=== PATIENT | female | born 1995 | race Caucasian/White ===

== ENCOUNTER 2017-09-16 21:47 | Emergency (ER) | payer MEDICAID ==
[2017-09-16] MEDS ORDERED: Sodium Chloride 0.9% 1,000 ML IV ONE (22:57)
[2017-09-16] MEDS ORDERED: Sodium Chloride 0.9% 1,000 ML ONE (23:09)
[2017-09-16 23:22] LABS: BASO % 0.4 % (0.0-2.0); EOS # 0.2 K/uL (0.0-0.7); HEMOGLOBIN 10.8 g/dL (11.0-16.0); LYMPH # 2.9 K/uL (1.0-4.3); LYMPH % 29.6 % (20.0-40.0); MEAN CELL VOLUME 79.6 fL (81.0-99.0); MEAN CORPUSCULAR HGB CONC 33.9 g/dL (33.0-37.0); MEAN PLATELET VOLUME 8.9 fL (7.2-11.7); MONO # 0.6 K/uL (0.0-0.8); MONO % 5.7 % (0.0-10.0); NEUT # 6.2 K/uL (1.8-7.0); NEUT % 62.3 % (50.0-75.0); RBC 4.01 Mil/uL (3.80-5.20); RED CELL DISTRIBUTION WIDTH 15.8 % (11.5-14.5); WHITE BLOOD COUNT 9.9 K/uL (4.8-10.8)
[2017-09-16 23:28] LABS: INR 1.1; PROTHROMBIN TIME 11.8 SECONDS (9.7-12.2)
[2017-09-16 23:33] LABS: ALBUMIN 3.5 g/dL (3.5-5.0); ALT/SGPT 33 U/L (9-52); AST/SGOT 54 U/L (14-36); BLOOD UREA NITROGEN 6 mg/dL (7-17); CALCIUM 8.6 mg/dl (8.6-10.4); GFR AFRICAN-AMERICAN > 60; GFR NON-AFRICAN AMERICAN > 60
--- NOTE | 2017-09-17 00:04 | C.PDOC ---
History Of Present Illness 21 years old female, currently 21 weeks , presents to ED with complaints of mild dizziness and dehydration associated with nausea. Patient also states an associated symptom of nose bleed that began yesterday and last week. Patient states nose bleeds last about 2-3 minute. Denies vomiting, fever or any other physical complaints. Patient reports she had an OB follow up for . Chief Complaint (Nursing): Dizziness/Lightheaded History Per: Patient History/Exam Limitations: no limitations Onset/Duration Of Symptoms: Hrs Current Symptoms Are (Timing): Still Present Associated Symptoms Preceding Syncopal Episode: No Predromal Symptoms (Sudden Onset) Seizure Or Post-ictal Symptoms: None Fall Associated With With Symptoms: No Recent travel outside of the [place]: No - Symptoms Of CVA Associated Symptoms: denies: Impaired Speech, Seizure Activity, New Vision Deficit(Left), New Vision Deficit(Right), Decreased Ability To Walk, New Confusion Recent Head Trauma: No Past Medical History Reviewed: Historical Data, Nursing Documentation, Vital Signs Vital Signs: Last Vital Signs Temp 98.3 F 09/17/17 00:33 Pulse 99 H 09/17/17 00:33 Resp 18 09/17/17 00:33 BP 102/62 09/17/17 00:33 Pulse Ox 95 09/17/17 00:33 - Medical History PMH: No Chronic Diseases Surgical History: No Surg Hx Family History: States: No Known Family Hx - Social History Hx Alcohol Use: No Hx Substance Use: No - Immunization History Hx Tetanus Toxoid Vaccination: No Hx Influenza Vaccination: No Hx Pneumococcal Vaccination: No Review Of Systems Constitutional: Positive for: Other (Dehydration ). Negative for: Fever, Chills Respiratory: Negative for: Shortness of Breath Gastrointestinal: Positive for: Nausea. Negative for: Vomiting, Diarrhea Skin: Negative for: Rash Neurological: Positive for: Dizziness (Mild ). Negative for: Weakness, Numbness Physical Exam - Physical Exam Appears: Well, Non-toxic, No Acute Distress Skin: Normal Color, Warm, Dry Head: Atraumatic, Normacephalic Eye(s): bilateral: Normal Inspection Oral Mucosa: Moist Neck: Supple Chest: Symmetrical, No Tenderness Cardiovascular: Rhythm Regular Respiratory: Normal Breath Sounds, No Decreased Breath Sounds, No Rales, No Rhonchi, No Wheezing Gastrointestinal/Abdominal: Soft, No Tenderness Extremity: Normal ROM, No Deformity Extremity: Bilateral: Normal Color And Temperature, Normal ROM Neurological/Psych: Oriented x3, Normal Speech, Normal Cognition ED Course And Treatment - Laboratory Results Result Diagrams: 09/16/17 23:17 09/16/17 23:17 O2 Sat by Pulse Oximetry: 98 (RA) Pulse Ox Interpretation: Normal Medical Decision Making Medical Decision Making: Administered IV fluids and Zofran. Ordered blood work and urinalysis. Disposition - [facility] - Disposition: HOME/ ROUTINE Disposition Time: 23:35 Condition: IMPROVED Additional Instructions: Thank you for letting us take care of you today. The emergency medical care you received today was directed at your acute symptoms. If you were prescribed any medication, please fill it and take as directed. It may take several days for your symptoms to resolve. Return to the Emergency Department if your symptoms worsen, do not improve, or if you have any other problems. Please contact your doctor or call one of the physicians/clinics you have been referred to that are listed on the Patient Visit Information form that is included in your discharge packet. Bring any paperwork you were given at discharge with you along with any medications you are taking to your follow up visit. Our treatment cannot replace ongoing medical care by a primary care provider (PCP) outside of the emergency department. Thank you for allowing the [facility] team to be part of your care today. Try to stay hydrated throughout the day. 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 Prescriptions: Ondansetron ODT [Zofran ODT] 4 mg PO Q8 PRN #20 odt PRN Reason: Nausea/Vomiting Instructions: Nutrition Before and During , Nausea and Vomiting of (DC) Forms: [employer] (Latvian) - Clinical Impression Clinical Impression: Dizziness, - Scribe Statement The provider has reviewed the documentation as recorded by the Felicianoibkonstantin Jacobsen All medical record entries made by the Felicianoibe were at my direction and personally dictated by me. I have reviewed the chart and agree that the record accurately reflects my personal performance of the history, physical exam, medical decision making, and the department course for this patient. I have also personally directed, reviewed, and agree with the discharge instructions and disposition.
[2017-09-17 00:34] VITALS: BP 102/62; PULSE 99; RESP 18; TEMP 98.3
[2017-09-17 00:43] VITALS: O2SAT 98
== END 2017-09-17 00:34 | disposition home or self-care (01) ==
LOC: C.ER 21:47
DX: O26.892 Other specified pregnancy related conditions, second trimester (principal); R42 Dizziness and giddiness; Z3A.21 21 weeks gestation of pregnancy
CPT/HCPCS: 80053; 85025; 85610; 85730; 96361; 96374; 99285; J2405; J7040

== ENCOUNTER 2017-09-27 16:57 | Emergency (ER) | payer MEDICAID ==
[2017-09-27 17:06] VITALS: BP 109/68; PULSE 100; TEMP 97.9; O2SAT 99
[2017-09-27] MEDS ORDERED: Bacitracin 500 Units/gm Oint Foilpak UD TOP ONE (17:40)
[2017-09-27] MEDS ORDERED: Tdap Vaccine 0.5 ml Vial (10-64 yrs) IM ONE (17:41)
--- NOTE | 2017-09-27 17:43 | C.PDOC ---
History Of Present Illness 21 y/o female presents to the ED for evaluation after being bit by a mouse. Now complaining of pain to the bite wound. Injury occurred last night at her right thumb. Last tetanus is unknown. Time Seen by Provider: 09/27/17 17:28 Chief Complaint (Nursing): Bite History Per: Patient History/Exam Limitations: no limitations Onset/Duration Of Symptoms: Days Current Symptoms Are (Timing): Still Present Past Medical History Reviewed: Historical Data, Nursing Documentation, Vital Signs Vital Signs: Last Vital Signs Temp 97.9 F 09/27/17 17:02 Pulse 100 H 09/27/17 17:02 Resp 18 09/27/17 17:55 BP 109/68 09/27/17 17:02 Pulse Ox 99 09/27/17 17:45 - Medical History PMH: No Chronic Diseases Surgical History: No Surg Hx Family History: States: Unknown Family Hx - Social History Hx Tobacco Use: No Hx Alcohol Use: No Hx Substance Use: No - Immunization History Hx Tetanus Toxoid Vaccination: No Hx Influenza Vaccination: No Hx Pneumococcal Vaccination: No Review Of Systems Except As Marked, All Systems Reviewed And Found Negative. Constitutional: Positive for: Other (Mouse bite) Physical Exam - Physical Exam Appears: Non-toxic, No Acute Distress Skin: Warm, Dry Extremity: Normal ROM, Other (Faint erythema and small miniscule abrasions to left dorsal MCP of thumb; No gross swelling, erythema, or infectious process. Neurovascularly intact) Pulses: Left Radial: Normal, Right Radial: Normal Neurological/Psych: Oriented x3 ED Course And Treatment O2 Sat by Pulse Oximetry: 99 (RA) Pulse Ox Interpretation: Normal Medical Decision Making Medical Decision Making: Impression: Mouse bite Plan: * Tetanus booster given * Bacitracin applied to wound * Tylenol PO for pain control Patient will be discharged home with rx for Augmentin. Advised patient to take antibiotics only if redness/swelling worsens. Suspicion for rabies secondary to mouse bite is low therefore rabies vaccine not given. Disposition Counseled Patient/Family Regarding: Diagnosis, Need For Followup, Rx Given - Disposition Referrals: Keyla Miguel MD [Staff Provider] - Disposition: HOME/ ROUTINE Disposition Time: 17:43 Condition: STABLE Additional Instructions: follow up with your doctor in 2 days call to make an appointment continue your home medications return to ER if symptoms worsens or progress start antibiotic only if wound becomes red or inflammed Prescriptions: Amoxicillin/Clavulanate [Augmentin 875 MG-125 MG] 1 tab PO BID #14 tab Instructions: Animal Bites (DC) Forms: [facility] (Vietnamese), General Discharge Instructions - Clinical Impression Clinical Impression: Animal bite wound - Scribe Statement The provider has reviewed the documentation as recorded by the Scribe (Martha Monroy) Provider Attestation: All medical record entries made by the Scribe were at my direction and personally dictated by me. I have reviewed the chart and agree that the record accurately reflects my personal performance of the history, physical exam, medical decision making, and the department course for this patient. I have also personally directed, reviewed, and agree with the discharge instructions and disposition.
[2017-09-27] MEDS ORDERED: Bacitracin 500 Units/gm Oint Foilpak UD ONE (17:48)
[2017-09-27] MEDS ORDERED: Tetanus/Diphtheria Toxoids 0.5 ml Syringe IM ONE (17:48)
[2017-09-27 17:58] VITALS: RESP 18
== END 2017-09-27 17:58 | disposition home or self-care (01) ==
LOC: C.ER 16:57
DX: S61.051A Open bite of right thumb without damage to nail, initial encounter (principal); W53.01XA Bitten by mouse, initial encounter; Z23 Encounter for immunization

== ENCOUNTER 2017-11-17 04:05 | Emergency (ER) | payer MEDICAID ==
[2017-11-17] MEDS ORDERED: Sodium Chloride 0.9% 1,000 ML ONE (04:34)
[2017-11-17] MEDS ORDERED: Sodium Chloride 0.9% 1,000 ML IV ONE (04:36)
[2017-11-17 04:53] LABS: EOS # 0.1 K/uL (0.0-0.7); EOS % 1.5 % (0.0-4.0); HEMOGLOBIN 11.1 g/dL (11.0-16.0); LYMPH # 2.7 K/uL (1.0-4.3); MEAN CORPUSCULAR HEMOGLOBIN 27.5 pg (27.0-31.0); MEAN CORPUSCULAR HGB CONC 34.3 g/dL (33.0-37.0); MEAN PLATELET VOLUME 9.8 fL (7.2-11.7); MONO # 0.7 K/uL (0.0-0.8); MONO % 7.8 % (0.0-10.0); NEUT # 5.2 K/uL (1.8-7.0); NEUT % 59.7 % (50.0-75.0); NRBC % 0.2 % (0.0-2.0); RBC 4.04 Mil/uL (3.80-5.20); RED CELL DISTRIBUTION WIDTH 15.5 % (11.5-14.5); WHITE BLOOD COUNT 8.8 K/uL (4.8-10.8)
[2017-11-17 04:58] LABS: ALB/GLOB RATIO 1.1 (1.0-2.1); ALBUMIN 3.5 g/dL (3.5-5.0); ALT/SGPT 55 U/L (9-52); AST/SGOT 70 U/L (14-36); BLOOD UREA NITROGEN 5 mg/dL (7-17); GFR AFRICAN-AMERICAN > 60; GFR NON-AFRICAN AMERICAN > 60
--- NOTE | 2017-11-17 05:17 | C.PDOC ---
History Of Present Illness 21 year old female who is 31 weeks , P:0, presents to the ER with a complaint of weakness and malaise intermittently for the past few days. Patient reports she feels dehydrated, she has been fully fasting and has not been drinking enough fluids. Denies SOB, palpitations, headache, or abdominal pain. Time Seen by Provider: 11/17/17 04:34 Chief Complaint (Nursing): Dizziness/Lightheaded History Per: Patient History/Exam Limitations: no limitations Onset/Duration Of Symptoms: Days, Intermittent Episodes Current Symptoms Are (Timing): Still Present Seizure Or Post-ictal Symptoms: None Fall Associated With With Symptoms: No Recent travel outside of the [place]: No Past Medical History Reviewed: Historical Data, Nursing Documentation, Vital Signs Vital Signs: Last Vital Signs Temp 98.6 F 11/17/17 04:23 Pulse 115 H 11/17/17 04:23 Resp 19 11/17/17 04:23 BP 123/68 11/17/17 04:23 Pulse Ox 98 11/17/17 05:21 Family History: States: Unknown Family Hx - Social History Hx Tobacco Use: No Hx Alcohol Use: No Hx Substance Use: No - Immunization History Hx Tetanus Toxoid Vaccination: No Hx Influenza Vaccination: No Hx Pneumococcal Vaccination: No Review Of Systems Constitutional: Positive for: Weakness, Malaise. Negative for: Fever, Chills Cardiovascular: Negative for: Chest Pain, Palpitations Respiratory: Negative for: Cough, Shortness of Breath Gastrointestinal: Negative for: Nausea, Vomiting Physical Exam - Physical Exam Appears: Well, Non-toxic, No Acute Distress Skin: Normal Color, Warm, Dry Head: Atraumatic, Normacephalic Eye(s): bilateral: Normal Inspection Oral Mucosa: Moist Neck: Normal, Supple Chest: Symmetrical, No Tenderness Cardiovascular: Rhythm Regular Respiratory: Normal Breath Sounds, No Rales, No Rhonchi, No Wheezing Gastrointestinal/Abdominal: Soft, No Tenderness Neurological/Psych: Oriented x3, Normal Speech ED Course And Treatment - Laboratory Results Result Diagrams: 11/17/17 04:42 11/17/17 04:42 O2 Sat by Pulse Oximetry: 98 (Room air) Pulse Ox Interpretation: Normal Progress Note: Blood work ordered, results were negative. IV fluids administered. On reevaluation, patient reports improvement of symptoms, she is resting comfortably in the ER in no acute distress, vitals are stable, will discharge home with Rx and instructions to follow up with PMD or return if symptoms worsen. Disposition - Disposition Referrals: OB, PMD [Other] Disposition: LEFT W/O BEING SEEN - ER ONLY Disposition Time: 05:31 Condition: GOOD Additional Instructions: Please take fluids today Return to ER if worse Forms: [facility] (Slovenian) - Clinical Impression Clinical Impression: Malaise, Dehydration, mild - PA / MULTIPLE DRILL OPERATOR / Resident Statement MD/DO has reviewed & agrees with the documentation as recorded. - Scribe Statement The provider has reviewed the documentation as recorded by the Scribe John Godwin All medical record entries made by the [place] were at my direction and personally dictated by me. I have reviewed the chart and agree that the record accurately reflects my personal performance of the history, physical exam, medical decision making, and the department course for this patient. I have also personally directed, reviewed, and agree with the discharge instructions and disposition.
[2017-11-17 05:35] VITALS: BP 113/67; PULSE 88; RESP 18; TEMP 98; O2SAT 99
== END 2017-11-17 05:47 | disposition home or self-care (01) ==
LOC: C.ER 04:05
DX: O26.893 Other specified pregnancy related conditions, third trimester (principal); R53.81 Other malaise; E86.0 Dehydration; Z3A.31 31 weeks gestation of pregnancy
CPT/HCPCS: 80053; 82948; 85025; 96360; 99285; J7030

== ENCOUNTER 2017-12-03 00:30 | Emergency (ER) | payer MEDICAID ==
[2017-12-03 00:49] VITALS: BMI 26.4
[2017-12-03 01:17] LABS: SQUAMOUS EPITHIAL 3 /hpf (0-5); URINE BACTERIA FEW (<OCC); URINE BILIRUBIN NEGATIVE (NEGATIVE); URINE BLOOD NEGATIVE (NEGATIVE); URINE CLARITY Clear (Clear); URINE COLOR Straw (YELLOW); URINE GLUCOSE (UA) NORMAL (Normal); URINE LEUKOCYTE ESTERASE 3+ Leu/uL (Negative); URINE PROTEIN NEGATIVE (NEGATIVE); URINE UROBILINOGEN NORMAL mg/dL (0.2-1.0)
--- NOTE | 2017-12-03 02:22 | OBHP ---
Datetime: 12/03/2017 01:59 IP Adm Impression: , intrauterine ; No Active Labor; Intact Membranes IP Chief Complaint Other: Pelvic pain and some N_V IP Admit Plan: Observation/Evaluation Admit Comment, IP Provider: 21 yo female G1 and with c/o of N_V earlier today but better now and now some low abdominal pain. Denies urinary complaints but drinks no water Admits to adequate FM and denies leaking of fluid or vaginal bleeding FH tracing reassuring UA with + LE's and >10 WBC's and suspicious for UTI and Rx given for Macrobid 100 mg po BID x 7 da ys and will increase po water intake. Advised to keep PNC appointments and continue PNV Pelvic Type - PN: Adequate Extremities - PN: Normal Abdomen - PN: Normal Back - PN: Normal Breast - PN: Not Done Lungs - PN: Normal Heart - PN: Normal Thyroid - PN: Normal Neurologic - PN: Normal HEENT - PN: Normal General - PN: Normal FHR - Baseline A Provider: 150-160 Membranes, Provider: Intact Contraction Comments Provider: None Gestation - Est Wks by US: 34.0 Vital Signs Provider: Reviewed; Within Normal Limits NICHD Variability Prov Fetus A: Moderate 6-25bpm NICHD Accel Fetus A IP Provider: 10X10 FHR Category Provider Fetus A: Category I NICHD Decel Fetus A IP Provider: None Dilatation, Provider: N/A Genitourinary Exam: Normal DTRs - PN: Normal
[2017-12-03 06:37] VITALS: BP 110/61; PULSE 89; RESP 18; TEMP 98.7
[2017-12-03] MEDS ORDERED: Prenatal Multivit/Folic Acid/Iron Tab PO SCH (10:00)
== END 2017-12-03 02:20 | disposition home or self-care (01) ==
LOC: C.EROB 00:30
DX: O26.893 Other specified pregnancy related conditions, third trimester (principal); Z3A.34 34 weeks gestation of pregnancy; R10.30 Lower abdominal pain, unspecified

== ENCOUNTER 2018-01-11 04:25 | Inpatient (IN) | payer MEDICAID ==
[2018-01-11 05:30] VITALS: BMI 26.6
[2018-01-11] MEDS ORDERED: Lactated Ringer's 1,000 ML IV ONE ×2 (06:04→08:14)
[2018-01-11] MEDS ORDERED: Lactated Ringer's 1,000 ML IV SCH (06:15)
[2018-01-11 07:00] LABS: BASO % 0.1 % (0.0-2.0); EOS # 0.1 K/uL (0.0-0.7); EOS % 0.8 % (0.0-4.0); HEMOGLOBIN 12.2 g/dL (11.0-16.0); LYMPH # 3.4 K/uL (1.0-4.3); LYMPH % 25.3 % (20.0-40.0); MEAN CELL VOLUME 79.3 fL (81.0-99.0); MEAN CORPUSCULAR HEMOGLOBIN 26.5 pg (27.0-31.0); MEAN CORPUSCULAR HGB CONC 33.5 g/dL (33.0-37.0); MEAN PLATELET VOLUME 10.2 fL (7.2-11.7); MONO % 7.3 % (0.0-10.0); NEUT # 8.9 K/uL (1.8-7.0); NEUT % 66.5 % (50.0-75.0); RBC 4.58 Mil/uL (3.80-5.20); RED CELL DISTRIBUTION WIDTH 16.6 % (11.5-14.5); WHITE BLOOD COUNT 13.4 K/uL (4.8-10.8)
--- NOTE | 2018-01-11 07:02 | OBHP ---
Datetime: 01/11/2018 06:43 IP Adm Impression: Term, intrauterine ; Active labor IP Admit Plan: Admit to unit; Initiate labor protocol Admit Comment, IP Provider: 22 y.o. , LMP 04/21/17, revised ARABELLA 01/15/18, EGA 39w 3d c/o Ctx sin ce 2300 hours 01/10/18; pain scale 7/10, approximately every 5 minutes. Decreased movement since late last evening. Denies LOF, VB. care: [facility]. Noted for abnormal scree kapil - S/P amniocentesis - negative. Also, mildly elevated LFTs: S/P consultation with MFM, nothing t o do in . 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 No significant follow up recently PSH: denies NKDA Meds: PNV Soc Hx: denies tobacco, illicit drug or EtOH use. - less than 1 year; in [place]. Unemmployed. Lives with her parents Fam Hx; Mother alive 47. Father alive 50 - nomed issues. Assessment: 22 y.o. P0, 39w 3d, early labor. GBS (-). Category 1 tracing. Cliniclly stable. Plan: 1) Admit 2) NPO 3) Admission labs 4) Continuous EFM 5) Anesthesia consult 6) Anticipate vaginal delivery Pelvic Type - PN: Adequate Extremities - PN: Normal Abdomen - PN: Normal Back - PN: Normal Lungs - PN: Normal Heart - PN: Normal Thyroid - PN: Not Done Neurologic - PN: Normal HEENT - PN: Normal General - PN: Normal Presentation-Admit: Vertex FHR - Baseline A Provider: 150 Membranes, Provider: Intact Contraction Comments Provider: 3-5 Comments, ACOG Physical Exam: Abdomen: Gravid. Firm with contractions. All other systems reviewed and are negative Gestation - Est Wks by US: 39 w 3d IP Hx Assessment: The History has been Reviewed and is Current IP Chief Complaint: Uterine contractions NICHD Variability Prov Fetus A: Moderate 6-25bpm NICHD Accel Fetus A IP Provider: 10X10 FHR Category Provider Fetus A: Category I NICHD Decel Fetus A IP Provider: Variable Dilatation, Provider: 5 Effacement, Provider: 50 Station, Provider: -2 Genitourinary Exam: Normal DTRs - PN: Not Done
[2018-01-11 07:03] LABS: SQUAMOUS EPITHIAL 1 /hpf (0-5); URINE BACTERIA RARE (<OCC); URINE BILIRUBIN NEGATIVE (NEGATIVE); URINE BLOOD NEGATIVE (NEGATIVE); URINE CLARITY Clear (Clear); URINE COLOR Yellow (YELLOW); URINE GLUCOSE (UA) NORMAL (Normal); URINE LEUKOCYTE ESTERASE TRACE Leu/uL (Negative); URINE PROTEIN NEGATIVE (NEGATIVE); URINE UROBILINOGEN NORMAL mg/dL (0.2-1.0)
[2018-01-11 07:13] LABS: ALB/GLOB RATIO 1.1 (1.0-2.1); ALBUMIN 3.6 g/dL (3.5-5.0); ALT/SGPT 54 U/L (9-52); AST/SGOT 61 U/L (14-36); BLOOD UREA NITROGEN 8 mg/dL (7-17); CALCIUM 9.4 mg/dl (8.6-10.4); GFR AFRICAN-AMERICAN > 60; GFR NON-AFRICAN AMERICAN > 60
[2018-01-11] MEDS ORDERED: Sodium Citrate/Citric Acid 15 ml Sol PO ONE (08:14)
[2018-01-11] MEDS ORDERED: cefOXitin IV 2 gm in Dextrose 2 GM/50 ML BAG IVPB ONE (08:14)
[2018-01-11] MEDS ORDERED: Dextrose 5%/0.9% NS 1,000 ML IV ONE (08:15)
[2018-01-11] MEDS ORDERED: cefOXitin IV 2 gm in Saline 2 GM/50 ML BAG IVPB ONE (08:19)
--- NOTE | 2018-01-11 08:19 | OBPN ---
Datetime: 01/11/2018 08:16 IP Progress Impression: Non-reassuring heart rate IP Procedures: Artificial ROM; Sterile Vag Exam Contraction Comments Provider: irrg FHR - Baseline A Provider: 130 IP Progress Note Comment: pt was examined at bed side. fhr 130 min brad 5/80/-2 arom thick meconium pln primary c/s r/a/b disc pt understan and agrees NICHD Variability Prov Fetus A: Minimal - Undetectable to <5bpm Dilatation, Provider: 5 Effacement, Provider: 70 Station, Provider: -3 NICHD Decel Fetus A IP Provider: Variable Datetime: 01/11/2018 06:43 Membranes, Provider: Intact Gestation - Est Wks by US: 39 w 3d Presentation-Admit: Vertex NICHD Accel Fetus A IP Provider: 10X10 FHR Category Provider Fetus A: Category I Datetime: 12/03/2017 01:59 Vital Signs Provider: Reviewed; Within Normal Limits
[2018-01-11] MEDS ORDERED: Oxytocin 20 units in LR 2,000 ML IV ONE (08:20)
[2018-01-11] MEDS ORDERED: Phenylephrine 10 mg/ml Inj ONE (08:21)
[2018-01-11] MEDS ORDERED: ePHEDrine 50 mg/ml Inj ONE (08:21)
[2018-01-11] MEDS ORDERED: Oxycodone/Acetaminophen 5/325 mg Tab PO PRN (08:39)
[2018-01-11] MEDS ORDERED: Oxytocin 10 Units/ml Inj ONE (09:38)
[2018-01-11] MEDS ORDERED: Dexamethasone 4 mg/1 ml IVP PRN (10:05)
[2018-01-11] MEDS ORDERED: Morphine 4 MG/ML VIAL IVP PRN (10:55)
[2018-01-11] MEDS: Simethicone 80 mg Chewtab PO SCH ×3 (18:16→22:58)
[2018-01-11] MEDS: Prenatal Multivit/Folic Acid/Iron Tab PO SCH (18:22)
--- NOTE | 2018-01-11 21:38 | OBDS ---
DELIVERY PERSONNEL Delivery Doctor: Ramon Graf MD Scrub Nurse: Luzmaria Lozano OBT Center Line Cutter Operator: Kesha Henderson RN Anesthesiologist: Azul Sandoval MD Resident: Jennifer Wesley MATERNAL INFORMATION Delivery Anesthesia: Spinal Medications in Delivery: 20mu in 1000 LR with 10units of pit added by Estimated Blood Loss (ml): 800 Placenta Cultured: Yes Maternal Complications: None RN Comments: thick meconium Provider Comments: banby deliverd in [place]. cord around neck. thick meconiu,. peads presem 6/9 cord gas send no com LABOR SUMMARY EDC: 01/15/2018 00:00 No. Babies in Womb: 1 Attempted: No Labor Anesthesia: None LABOR INFORMATION Reason for Induction: Not Applicable Onset of Labor: 01/11/2018 05:00 Cervical Ripening Agents: Sky Balloon Oxytocin: N/A Group B Beta Strep: Negative (Annotations: 12/13/2017) Antibiotics # of Doses: 0 Antibiotics Time of Last Dose: 0 Steroids Given: None Reason Steroids Not Administered: Imminent Delivery MEMBRANES Membranes Rupture Method: Artificial Rupture of Membranes: 01/11/2018 08:22 Length of Rupture (hrs): 1.18 Amniotic Fluid Color: Particulate Meconium Amniotic Fluid Amount: None (Annotations: mom may have been ruptured) Amniotic Fluid Odor: None STAGES OF LABOR Stage 3 hrs: 0 Stage 3 min: 2 Total Time in Labor hrs: 4 Total Time in Labor min: 35 CSECTION DELIVERY Primary Indication: Nonreassuring Status CSection Urgency: Non Elective CSection Incidence: Primary Labor: Labor Elective: Nonelective CSection Incision: Lower Uterine Transverse Sterilization Procedure: [place] BABY A INFORMATION Delivery Date/Time: 01/11/2018 09:33 Method of Delivery: Born in Route : No : N/A Forceps: N/A Vacuum Extraction: N/A Shoulder Dystocia : No SHOULDER DYSTOCIA BABY A Infant Delivery Date/Time: 01/11/2018 09:33 PRESENTATION/POSITION BABY A Presentation: Cephalic Cephalic Presentation: Vertex Vertex Position: Left Occipital Anterior Breech Presentation: N/A PLACENTA INFORMATION BABY A Placenta Delivery Time : 01/11/2018 09:35 Placenta Method of Delivery: Manual Removal Placenta Status: Delivered SCORES BABY A Heart Rate 1 min: Slow, Below 100 bpm Resp Effort 1 min: Slow, Irregular Reflex Irritability 1 min: Cough or Sneeze or Pulls Away Muscle Tone 1 min: Some Flexion of Extremities Color 1 min: Body [place], Extremities Blue Resuscitation Effort 1 min: N/A SCORE 1 MIN: 6 Heart Rate 5 min: >100 bpm Resp Effort 5 min: Good Cry Reflex Irritability 5 min: Cough or Sneeze or Pulls Away Muscle Tone 5 min: Active Motion Color 5 min: Body [place], Extremities Blue Resuscitation Effort 5 min: N/A SCORE 5 MIN: 9 INFANT INFORMATION BABY A Gestational Age at Delivery: 39.3 Gestational Status: Term Infant Outcome : Liveborn Condition : Stable Sex: Female IDENTIFICATION/MEDS BABY A ID Band Number: [id number] Sensor Number: [id number] Sensor Location : Cord Clamp Vitamin K Given : Not Given Erythromycin Given: Not Given WEIGHT/LENGTH BABY A Infant Birthweight (gms): 2340 Infant Weight (lb): 5 Infant Weight (oz): 3 Infant Length Inches: 18.50 Length cms: 47.0 CORD INFORMATION BABY A No. Cord Vessels: 3 Nuchal Cord : Around Neck x1, Loose Nuchal Cord Other: around body Cord Blood Taken: Yes Suction: Mouth; Nose; Pharynx ASSESSMENT BABY A Complications: Decreased Variability; Meconium Physical Findings at Delivery: Within Normal Limits Respirations: Grunting Infant Care By: Dr. Wlesh and Jaleel Jett Transferred To: [facility] BABY B INFORMATION Method of Delivery :
--- NOTE | 2018-01-12 08:03 | OP ---
Copied To: Ramon Graf MD Attending MD: Ramon Graf MD PROCEDURE DATE: 01/11/2018 PREOPERATIVE DIAGNOSIS: A 22-year-old 1, para 0 at 39 weeks with nonreassuring tracing. POSTOPERATIVE DIAGNOSIS: A 22-year-old 1, para 0 at 39 weeks with nonreassuring tracing with thick meconium. SURGEON: Ramon Graf MD PLATFORM MATERIAL HANDLING SUPERVISOR: Dr. Bueno, who was present throughout the surgery for exposure, retraction, pushing at the time of the delivery. COMPLICATIONS: None. ANESTHESIA: Spinal anesthesia. ANESTHESIOLOGIST: Dr. Sandoval. ESTIMATED BLOOD LOSS: 800 mL. DESCRIPTION OF PROCEDURE: After informed consent was obtained, the patient was brought to the operating room, placed on the table where spinal anesthesia was given. Once the anesthesia was given, the patient was prepped and draped in the normal sterile fashion. A Sky catheter was inserted under sterile condition. About 2 cm above the pubic bone, a skin incision was made with the knife, the subcutaneous cut with the Bovie. The fascia was then excised on both the sides using curved Correia scissors. The fascia was from the site of the umbilicus and at the site of the pubic bone, rectus muscle was . Peritoneum was incised and we went into the abdominal cavity. Bladder blade was placed and bladder flap was created. Lower uterine segment incision was made with a knife, it was extended using Bovie and curved Correia scissors. Baby was delivered in a JIM position. There was a cord around the baby's neck which was reduced. There was thick meconium. Cord gas was taken. Cord blood was taken. Placenta delivered manually and sent to the pathology. Uterus was exteriorized and cleared of all clots and debris . Then, the uterine incision was closed using 2-0 Vicryl in running interlocking fashion, second layer was closed with the same stitch and lot of irrigation was done. After that, uterus, tubes and ovaries looked normal. Cul-de-sac was cleared of all the clots and debris. Uterus was returned back to the abdominal cavity. Gutters were cleared of all the clots and debris. Peritoneum was closed using 2-0 Vicryl in running interlocking fashion. The muscle was closed using 2-0 Vicryl in running interlocking fashion. Fascia was closed using 1 Vicryl in running interlocking fashion. Subcutaneous tissue was closed with 0 Vicryl in interrupted fashion. Skin was closed using wade. The patient tolerated the procedure well. Lap, sponge, and instrument counts were correct x2. Ramon Graf MD
[2018-01-12 08:20] LABS: HEMOGLOBIN 10.8 g/dL (11.0-16.0); MEAN CELL VOLUME 79.1 fL (81.0-99.0); MEAN CORPUSCULAR HEMOGLOBIN 26.7 pg (27.0-31.0); MEAN CORPUSCULAR HGB CONC 33.7 g/dL (33.0-37.0); MEAN PLATELET VOLUME 9.6 fL (7.2-11.7); RBC 4.03 Mil/uL (3.80-5.20); RED CELL DISTRIBUTION WIDTH 16.6 % (11.5-14.5); WHITE BLOOD COUNT 11.2 K/uL (4.8-10.8)
[2018-01-12] MEDS: Prenatal Multivit/Folic Acid/Iron Tab PO SCH (10:43)
[2018-01-12] MEDS: Simethicone 80 mg Chewtab PO SCH ×4 (10:43→22:18)
--- NOTE | 2018-01-12 18:48 | OBPPN ---
Datetime: 01/12/2018 18:34 PP Pain Prov: Within normal limits PP Nausea Prov: Denies PP Flatus Prov: No PP BM Prov: No PP Heart Prov: Normal PP Lungs Prov: Normal PP Abdomen/Uterus Prov: Normal PP Lochia Prov: Normal PP Vulva/Perineum Prov: Not Done PP CVA Tenderness Prov: Normal PP Extremities Prov: Normal PP C/S Incision Prov: Normal PP Progress Prov: Normal PP Comments Phys Exam Prov: Abdomen: (+) BS. Soft. Non distended. Fundus firm, tender, 1 FB below um bilicus. Incision with wade - clean, dry and intact. Mild lochia rubra Extremities: no calf tenderness All other systems reviewed and are negative PP Impression Prov: Normal progression PP Plan Prov: Continue present management PP Progress Note Prov: Patient received in bed, room 460. C/O incisional pain, 8/10, relieved by denisse n meds; and gas pains. Attempting to breastfeed. Ambulating in room; voiding without difficulty. P.E.: as above. WD in NAD. Awake, alert, oriented to time, person and place. Pleasant and coopera tive. - POD#1, 10.8/31.9 Assessment: POD#1, 22 y.o. , S/P primary LTCS for NRFHRT. Afebrile, vital signs stable. Yelitza ent encourage to ambulate. Asymptomatic anemia; hemodynamically stable. Notified by R.N.: patient has passed flatus and had a small BM. Reports being more hungry. Plan: 1) Continue post op care 2) Advance to regular diet Vital Signs Provider PP: Reviewed; Within Normal Limits
[2018-01-12] MEDS: Oxycodone/Acetaminophen 5/325 mg Tab PO PRN (18:49)
[2018-01-13 08:22] VITALS: RESP 18
[2018-01-13] MEDS: Simethicone 80 mg Chewtab PO SCH ×4 (11:00→21:29)
[2018-01-13] MEDS: Prenatal Multivit/Folic Acid/Iron Tab PO SCH (11:00)
[2018-01-13] MEDS: Oxycodone/Acetaminophen 5/325 mg Tab PO PRN (18:13)
--- NOTE | 2018-01-13 18:50 | OBPPN ---
Datetime: 01/13/2018 14:36 PP Pain Prov: Within normal limits PP Nausea Prov: Denies PP Flatus Prov: Yes PP BM Prov: Yes PP Breasts Prov: Not Done PP Heart Prov: Normal PP Lungs Prov: Normal PP Abdomen/Uterus Prov: Normal PP Lochia Prov: Normal PP Vulva/Perineum Prov: Normal PP CVA Tenderness Prov: Normal PP Extremities Prov: Normal PP C/S Incision Prov: Normal PP Progress Prov: Normal PP Comments Phys Exam Prov: Incision clean, dry, intact and healing well PP Impression Prov: Normal progression PP Plan Prov: Continue present management PP Progress Note Prov: POD # 2 S/P Primary C/S without complications Post H_H 10.8/31.9 Rh Positive Pain well controlled with current pain medications Advance care Encouraged to increase po water intake and activiry Stable and Satisfactory condition and recovery Anticipate D/c home in AM IP PP Procedures: None Vital Signs Provider PP: Reviewed Vital Signs Provider Details PP: + Voiding, eating and drinking
--- NOTE | 2018-01-14 07:58 | OBPPN ---
Datetime: 01/14/2018 07:55 PP Pain Prov: Within normal limits PP Nausea Prov: Denies PP Flatus Prov: Yes PP Breasts Prov: Normal PP Heart Prov: Normal PP Lungs Prov: Normal PP Abdomen/Uterus Prov: Normal PP Lochia Prov: Normal PP Vulva/Perineum Prov: Normal PP CVA Tenderness Prov: Normal PP Extremities Prov: Normal PP C/S Incision Prov: Normal PP Progress Prov: Normal PP Impression Prov: Normal progression PP Plan Prov: Continue present management PP Progress Note Prov: pt seen and examiend adn reprots pain controlled with medication. pt is ambul ating, voidng passing flatus, tolerating regular diet. pt denies any fevers, chills, nause, vomiting, cp, sob, bowel or bladder complaints. Pt is breast feeding and denies any feelings of sadness or dep ression. VSS PE: GEN NAD AAO x 3 BREAST: NT, Non engorged b/l CVS:RRR< +S1/S2 ABS: Soft, NT, nd , no guarding no rebound tenderness no rigidity, +BS Incision C/D?I healign well FUNDUS: Firm below level of umbilicus VE: minimal lochia, non foul smelling EXT: negative homans sign, no calf tendeness A/P s/p CxS POD #3 doing well dc home f/u clinic 1 week precautions given IP PP Procedures: None Vital Signs Provider PP: Reviewed; Within Normal Limits
--- NOTE | 2018-01-14 07:58 | OBDCSUM ---
Datetime: 01/14/2018 07:56 Discharged to, Provider: Home Follow up at, Provider: Clinic Disch Instr Activity: Normal activity Disch Instr Diet: Regular Discharge Instructions, Provider: Routine instructions given Discharge Diagnosis, Provider: Term Delivered Discharge Time: 01/14/2018 07:56 Follow up in weeks, Provider: 1 week Disch Referrals: None Contraception discussed, Prov: Yes Disch Activity Restrictions: No exercising; No driving; No sexual activity; Nothing in vagina - Inte rcourse, tampons, douche Discharge Comment, Provider: precautin given Contraception after Delivery: Not Planning to Use
[2018-01-14 09:08] VITALS: BP 100/63; PULSE 87; O2SAT 98
[2018-01-14] MEDS: Simethicone 80 mg Chewtab PO SCH ×3 (09:20→18:11)
[2018-01-14] MEDS: Prenatal Multivit/Folic Acid/Iron Tab PO SCH (09:20)
[2018-01-15 00:20] VITALS: TEMP 97.1
== END 2018-01-14 19:45 | disposition home or self-care (01) | DRG 371 ==
LOC: C.EROB 04:25 → C.4D 06:00 → C.4M 16:47
PROVIDERS: ADMIT Obstetrics & Gynecology; ATTEND Obstetrics & Gynecology
PROC: 10D00Z1 Extraction of Products of Conception, Low, Open Approach (ICD-10-PCS; principal; 2018-01-11)
DX: O76 Abnormality in fetal heart rate and rhythm complicating labor and delivery (principal); O36.8130 Decreased fetal movements, third trimester, not applicable or unspecified; O75.89 Other specified complications of labor and delivery; R79.89 Other specified abnormal findings of blood chemistry; O77.0 Labor and delivery complicated by meconium in amniotic fluid; O69.1XX0 Labor and delivery complicated by cord around neck, with compression, not applicable or unspecified; Z37.0 Single live birth; Z3A.39 39 weeks gestation of pregnancy

== ENCOUNTER 2018-07-02 20:36 | Emergency (ER) | payer MEDICAID ==
[2018-07-02 20:37] VITALS: BMI 26.6
--- NOTE | 2018-07-02 21:43 | C.PDOC ---
History Of Present Illness 22 year old female presents to the emergency department with complaints of cough, congestion, headache, sore throat, ear pain, and fever since yesterday. Patient reports taking Tylenol today which resolved her fever but states that the other symptoms are still present. Patient denies sick contact and other medical problems. Time Seen by Provider: 07/02/18 21:23 Chief Complaint (Nursing): ENT Problem History Per: Patient History/Exam Limitations: None Onset/Duration Of Symptoms: Days (1) Current Symptoms Are (Timing): Still Present Quality (Mouth/Throat): Other (pain) Past Medical History Reviewed: Historical Data, Nursing Documentation, Vital Signs Vital Signs: Last Vital Signs Temp 98.6 F 07/02/18 20:43 Pulse Resp BP 137/87 07/02/18 20:43 Pulse Ox 107 H 07/02/18 20:43 - Medical History PMH: No Chronic Diseases Denies: Depression, Diabetes, HTN Surgical History: No Surg Hx - [facility] EXTRACTION OF POC, LOW CERVICAL, OPEN APPROACH (01/11/18) Family History: States: No Known Family Hx - Social History Hx Tobacco Use: No Hx Alcohol Use: No Hx Substance Use: No - Immunization History Hx Tetanus Toxoid Vaccination: No Hx Influenza Vaccination: No Hx Pneumococcal Vaccination: No Review Of Systems Except As Marked, All Systems Reviewed And Found Negative. Constitutional: Positive for: Fever ENT: Positive for: Ear Pain, Nose Congestion, Throat Pain Respiratory: Positive for: Cough Neurological: Positive for: Headache Physical Exam - Physical Exam Appears: Non-toxic, No Acute Distress Skin: Normal Color, Warm, Dry Head: Atraumatic, Normacephalic Eye(s): bilateral: Normal Inspection, PERRL, EOMI Ear(s): Bilateral: Normal Nose: Normal Oral Mucosa: Moist Throat: Erythema, Exudate (scant), Other (hypertrophy) Neck: Normal, Supple Chest: Symmetrical, No Tenderness Cardiovascular: Rhythm Regular, No Murmur Respiratory: No Rales, No Rhonchi, No Wheezing Gastrointestinal/Abdominal: Soft, No Tenderness Neurological/Psych: Oriented x3, Normal Speech, Normal Cognition ED Course And Treatment O2 Sat by Pulse Oximetry: 100 (RA) Pulse Ox Interpretation: Normal Medical Decision Making Medical Decision Making: Plan: Amoxil 500mg PO Tamiflu 75mg PO POC Urine Assessment: Pharyngitis Disposition Counseled Patient/Family Regarding: Studies Performed, Diagnosis, Need For Followup, Rx Given - Disposition Referrals: Genet Sotelo MD [Staff Provider] - Disposition Time: 22:04 Condition: STABLE Additional Instructions: follow up with your doctor within 2 days call to make an appointment take medications as prescribed return to ER if symptoms worsens or progress Prescriptions: Amoxicillin 875 mg PO BID #20 tablet Oseltamivir Phosphate [Tamiflu] 75 mg PO BID #10 capsule Instructions: Sore Throat in Adults Forms: [facility] (Hungarian), General Discharge Instructions - Clinical Impression Clinical Impression: Pharyngitis, Flu-like symptoms - Scribe Statement The provider has reviewed the documentation as recorded by the Scribe (Elio Vieira) Provider Attestation: All medical record entries made by the Scribe were at my direction and personally dictated by me. I have reviewed the chart and agree that the record accurately reflects my personal performance of the history, physical exam, medical decision making, and the department course for this patient. I have also personally directed, reviewed, and agree with the discharge instructions and disposition.
[2018-07-02 22:13] VITALS: BP 120/83; PULSE 98; TEMP 97.5; O2SAT 99
[2018-07-02 22:55] VITALS: RESP 18
== END 2018-07-02 22:51 | disposition home or self-care (01) ==
LOC: C.ER 20:36
DX: J11.1 Influenza due to unidentified influenza virus with other respiratory manifestations (principal)

== ENCOUNTER → 2018-08-16 | Emergency (ER) | payer MEDICAID | END | disposition left against medical advice (07) | LOC: C.ER 17:25 ==